=== PATIENT | female | born 1985 | race Caucasian/White ===

== ENCOUNTER 2019-08-09 18:59 | Emergency (ER) | payer BC, OTHER ==
[~2019-08-09] VITALS: Ht 160 cm; Wt 61.0 kg
[~2019-08-09 18:59] MED LIST: CYCL-1 PO
[2019-08-09 19:14] VITALS: BP 91/62
--- NOTE | 2019-08-09 19:53 | NUR ---
BIT BY DOG ON July. UNKNOWN IF DOG HAS RABIES.
[2019-08-09] MEDS ORDERED: rabies vaccine (PCEC)/PF 2.5 unit kit IMVAC ONE (20:35)
[2019-08-09] MEDS ORDERED: rabies immune globulin/PF 150 unit/ml inj IMVAC STA (20:35)
[2019-08-09] MEDS ORDERED: [UNRECOGNIZED DRUG - CODE] IM (21:59)
== END 2019-08-09 22:32 | disposition home or self-care (01) ==
LOC: ER 19:00
DX: Z23 Encounter for immunization (principal); S61.452D Open bite of left hand, subsequent encounter; S60.311D Abrasion of right thumb, subsequent encounter; Z88.6 Allergy status to analgesic agent; Z88.5 Allergy status to narcotic agent; W54.0XXD Bitten by dog, subsequent encounter
CPT/HCPCS: 90375; 90471; 90675; 96372; 99283

== ENCOUNTER 2019-08-12 09:40 | Emergency (ER) | payer BC, OTHER ==
[~2019-08-12] VITALS: Ht 160 cm; Wt 62.8 kg
[~2019-08-12 09:40] MED LIST changes: +[UNRECOGNIZED DRUG - CODE] IM
[2019-08-12 09:53] VITALS: BP 105/67
[2019-08-12] MEDS ORDERED: rabies vaccine (PCEC)/PF 2.5 unit kit IMVAC ONE (10:00)
== END 2019-08-12 10:34 | disposition home or self-care (01) ==
LOC: ER 09:40
DX: Z23 Encounter for immunization (principal); Z88.1 Allergy status to other antibiotic agents; Z88.5 Allergy status to narcotic agent; Z88.6 Allergy status to analgesic agent; Z79.899 Other long term (current) drug therapy
CPT/HCPCS: 90471; 90675; 99283

== ENCOUNTER 2019-08-16 09:27 | Emergency (ER) | payer BC, OTHER ==
[~2019-08-16] VITALS: Ht 160 cm; Wt 59.0 kg
[2019-08-16 09:35] VITALS: BP 117/68
[2019-08-16] MEDS ORDERED: rabies vaccine (PCEC)/PF 2.5 unit kit IMVAC ONE (09:50)
== END 2019-08-16 10:33 | disposition home or self-care (01) ==
LOC: ER 09:27
DX: Z23 Encounter for immunization (principal); Z88.6 Allergy status to analgesic agent; Z88.1 Allergy status to other antibiotic agents; Z88.5 Allergy status to narcotic agent; Z79.899 Other long term (current) drug therapy
CPT/HCPCS: 90471; 90675; 99283

== ENCOUNTER 2019-08-24 09:17 | Emergency (ER) | payer BC, OTHER ==
[~2019-08-24] VITALS: Ht 160 cm; Wt 59.9 kg
[2019-08-24 09:25] VITALS: BP 97/60
[2019-08-24] MEDS ORDERED: rabies vaccine (PCEC)/PF 2.5 unit kit IMVAC ONE (10:30)
== END 2019-08-24 10:56 | disposition home or self-care (01) ==
LOC: ER 09:18
DX: Z23 Encounter for immunization (principal); Z88.6 Allergy status to analgesic agent; Z88.1 Allergy status to other antibiotic agents; Z88.5 Allergy status to narcotic agent
CPT/HCPCS: 90471; 90675; 99283